=== PATIENT | female | born 1940 | race Asian ===

== ENCOUNTER 2016-12-27 23:21 | Emergency (ER) | payer MEDICARE, OTHER ==
[~2016-12-27] VITALS: Ht 144.8 cm; Wt 45.4 kg
[2016-12-28 00:29] LABS: BASO % 1 % (0-3); EOS # 0.1 x10^3/uL (0.0-0.7); EOS % 3 % (0-3); HEMATOCRIT 43.6 % (36.0-47.0); HEMOGLOBIN 14.7 g/dL (12.0-15.5); LYMPH # 1.9 x10^3/uL (1.0-4.8); LYMPH % 43 % (24-48); MEAN CORPUSCULAR HEMOGLOBIN 31 pg (25-35); MEAN CORPUSCULAR HGB CONC 34 g/dL (31-37); MEAN CORPUSCULAR VOLUME 91 fL (79-100); MONO # 0.4 x10^3/uL (0.0-1.1); MONO % 8 % (0-9); NEUT % 46 % (31-73); PLATELET COUNT 200 x10^3/uL (140-400); RED BLOOD COUNT 4.82 x10^6/uL (3.50-5.40); RED CELL DISTRIBUTION WIDTH 13.5 % (11.5-14.5); WHITE BLOOD COUNT 4.3 x10^3/uL (4.0-11.0)
[2016-12-28] MEDS ORDERED: LABETALOL 20 MG/4 ML DISP.SYRIN. IVP ONE (00:30)
--- NOTE | 2016-12-28 00:33 | RAD ---
EXAM: CT HEAD WITHOUT CONTRAST. HISTORY: Hypertension. TECHNIQUE: Computed tomography of the head was performed without intravenous contrast. COMPARISON: None. FINDINGS: There is no intracranial hemorrhage. Hypoattenuation within the periventricular white matter indicates mild chronic microangiopathic change. Prominence of the lateral ventricles and hemispheric sulci indicates mild atrophy. The visualized paranasal sinuses appear clear. The orbits are unremarkable. There is a small amount of fluid in the left middle ear cavity. The calvarium reveals no suspicious lesions. There are atherosclerotic calcifications of the internal carotid arteries. IMPRESSION: 1. No acute intracranial findings. 2. Mild atrophy and chronic microangiopathic white matter change. 3. Correlate for left otitis media. *One or more of the following individualized dose reduction techniques were utilized for this examination: 1. Automated exposure control. 2. Adjustment of the mA and/or kV according to patient size. 3. Use of iterative reconstruction technique. Electronically signed by: Eduardo Justice MD (12/28/2016 12:29 AM)
[2016-12-28 00:40] LABS: ALBUMIN 3.8 g/dL (3.4-5.0); ALBUMIN/GLOBULIN RATIO 1.1 (1.0-1.7); CREATININE 0.8 mg/dL (0.6-1.0); GFR 69.4; TOTAL BILIRUBIN 0.3 mg/dL (0.2-1.0); TOTAL PROTEIN 7.3 g/dL (6.4-8.2)
--- NOTE | 2016-12-28 00:57 | PHYS DOC ---
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 Tonight while laying in bed patient noticed an increased ringing in her right ear. Although she had no chest pain, no vision changes, no shortness of breath, no other neurologic complaints she took her blood pressure noted that it was mildly elevated at 170s over 90s. She took at some subsequently 3 more times and it remained elevated. She was concerned and came to the emergency department in the emergency department her blood pressure initially was very elevated but she again has no symptoms not even tinnitus at this time. She denies any headache, denies any change in medication regimen, denies any trauma, or hematuria. Review of Systems Review of Systems Constitutional: Denies fever or chills [] Eyes: Denies change in visual acuity, redness, or eye pain [] complains only tinnitus in the right ear HENT: Denies nasal congestion or sore throat [] Respiratory: Denies cough or shortness of breath [] Cardiovascular: No additional information not addressed in HPI [] GI: Denies abdominal pain, nausea, vomiting, bloody stools or diarrhea [] : Denies dysuria or hematuria [] Musculoskeletal: Denies back pain or joint pain [] Integument: Denies rash or skin lesions [] Neurologic: Denies headache, focal weakness or sensory changes [] Endocrine: Denies polyuria or polydipsia [] Current Medications Current Medications Current Medications Medications (Trade) Dose Ordered Sig/[facility] Start Time Stop Time Status Last Admin Dose Admin Labetalol HCl (Normodyne) 20 mg 1X ONCE 12/28/16 00:30 12/28/16 00:31 DC 12/28/16 00:30 20 MG Allergies Allergies Allergies Coded Allergies Type Severity Reaction Last Updated Verified No Known Drug Allergies 12/27/16 No Physical Exam Physical Exam Constitutional: Well developed, well nourished, no acute distress, non-toxic appearance. [] HENT: Normocephalic, atraumatic, bilateral external ears normal, oropharynx moist, no oral exudates, nose normal. [] Eyes: PERRLA, EOMI, conjunctiva normal, no discharge. [] Neck: Normal range of motion, no tenderness, supple, no stridor. [] Cardiovascular:Heart rate regular rhythm, no murmur [] Lungs & Thorax: Bilateral breath sounds clear to auscultation [] Abdomen: Bowel sounds normal, soft, no tenderness, no masses, no pulsatile masses. [] Skin: Warm, dry, no erythema, no rash. [] Back: No tenderness, no CVA tenderness. [] Extremities: No tenderness, no cyanosis, no clubbing, ROM intact, no edema. [] Neurologic: Alert and oriented X 3, normal motor function, normal sensory function, no focal deficits noted. [] Cranial nerves II through XII are intact. Patient's visual acuities with intact to visual confrontation. Patient has no dysmetria or past-pointing. Patient is normal sensation to light touch and pain up her perception over all extremities. Psychologic: Affect normal, judgement normal, mood normal. [] Current Patient Data Vital Signs Vital Signs Date Time Temp Pulse Resp B/P (MAP) Pulse Ox O2 Delivery O2 Flow Rate FiO2 12/28/16 00:30 64 167/96 Lab Results Laboratory Tests Test 12/28/16 00:05 White Blood Count 4.3 x10^3/uL (4.0-11.0) Red Blood Count 4.82 x10^6/uL (3.50-5.40) Hemoglobin 14.7 g/dL (12.0-15.5) Hematocrit 43.6 % (36.0-47.0) Mean Corpuscular Volume 91 fL (79-100) Mean Corpuscular Hemoglobin 31 pg (25-35) Mean Corpuscular Hemoglobin Concent 34 g/dL (31-37) Red Cell Distribution Width 13.5 % (11.5-14.5) Platelet Count 200 x10^3/uL (140-400) Neutrophils (%) (Auto) 46 % (31-73) Lymphocytes (%) (Auto) 43 % (24-48) Monocytes (%) (Auto) 8 % (0-9) Eosinophils (%) (Auto) 3 % (0-3) Basophils (%) (Auto) 1 % (0-3) Neutrophils # (Auto) 2.0 x10^3uL (1.8-7.7) Lymphocytes # (Auto) 1.9 x10^3/uL (1.0-4.8) Monocytes # (Auto) 0.4 x10^3/uL (0.0-1.1) Eosinophils # (Auto) 0.1 x10^3/uL (0.0-0.7) Basophils # (Auto) 0.0 x10^3/uL (0.0-0.2) Sodium Level 142 mmol/L (136-145) Potassium Level 4.0 mmol/L (3.5-5.1) Chloride Level 107 mmol/L (98-107) Carbon Dioxide Level 31 mmol/L (21-32) Anion Gap 4 (6-14) L Blood Urea Nitrogen 15 mg/dL (7-20) Creatinine 0.8 mg/dL (0.6-1.0) Estimated GFR (Cockcroft-Gault) 69.4 BUN/Creatinine Ratio 19 (6-20) Glucose Level 107 mg/dL (70-99) H Calcium Level 9.0 mg/dL (8.5-10.1) Total Bilirubin 0.3 mg/dL (0.2-1.0) Aspartate Amino Transferase (AST) 24 U/L (15-37) Alanine Aminotransferase (ALT) 33 U/L (14-59) Alkaline Phosphatase 93 U/L (46-116) Troponin I Quantitative < 0.017 ng/mL (0-0.055) Total Protein 7.3 g/dL (6.4-8.2) Albumin 3.8 g/dL (3.4-5.0) Albumin/Globulin Ratio 1.1 (1.0-1.7) EKG EKG [] EKG timed till at 2 AM on 12/28/2016 demonstrates sinus rhythm at 65 bpm MI interval of 162 which is normal QRS interval normal at 80 QTC normal at 419. There is a nonspecific T-wave flattening in V6 lateral leads otherwise normal looking EKG. Read by Dr. Henderson. Radiology/Procedures Radiology/Procedures [] IMAGING REPORT Signed PATIENT: REANNA GRACIA ACCOUNT: [id number] : 1940 LOCATION: ER AGE: 76 SEX: F EXAM STATUS: REG ER ORD. PHYSICIAN: RANJIT HENDERSON MD REASON: htn PROCEDURE: CT HEAD WO CONTRAST EXAM: CT HEAD WITHOUT CONTRAST. HISTORY: Hypertension. TECHNIQUE: Computed tomography of the head was performed without intravenous contrast. COMPARISON: None. FINDINGS: There is no intracranial hemorrhage. Hypoattenuation within the periventricular white matter indicates mild chronic microangiopathic change. Prominence of the lateral ventricles and hemispheric sulci indicates mild atrophy. The visualized paranasal sinuses appear clear. The orbits are unremarkable. There is a small amount of fluid in the left middle ear cavity. The calvarium reveals no suspicious lesions. There are atherosclerotic calcifications of the internal carotid arteries. IMPRESSION: 1. No acute intracranial findings. 2. Mild atrophy and chronic microangiopathic white matter change. 3. Correlate for left otitis media. *One or more of the following individualized dose reduction techniques were utilized for this examination: 1. Automated exposure control. 2. Adjustment of the mA and/or kV according to patient size. 3. Use of iterative reconstruction technique. Electronically signed by: Eduardo Justice MD (12/28/2016 12:29 AM) DICTATED AND SIGNED BY: EDUARDO JUSTICE MD DATE: 12/28/16 0027 CC: RANJIT HENDERSON MD; MACARIO MILTON MD ~ Course & Med Decision Making Course & Med Decision Making Pertinent Labs and Imaging studies reviewed. (See chart for details) since laboratory work, CT scan of head, EKG were all evaluated for end organ damage presence.. There is no evidence of cardiac ischemia, on EKG or troponin. No evidence of renal insufficiency or hematuria proteinuria on urinalysis no evidence of ischemia on CAT scan of her head. Impression hypertensive urgency, tinnitus unclear etiology. Disposition: Hypertensive urgency follow-up 24-48 hours her primary care doctor to change or alter present hypertensive regimen. Patient encouraged to limit salt intake encouraged to exercise even precautions. [] Dragon Disclaimer Dragon Disclaimer This chart was dictated in whole or in part using Voice Recognition software in a busy, high-work load, and often noisy Emergency Department environment. It may contain unintended and wholly unrecognized errors or omissions. Departure Departure: Impression: Primary Impression: Hypertension Additional Impression: Tinnitus of right ear Disposition: HOME, SELF-CARE Condition: IMPROVED Referrals: MACARIO MILTON MD (PCP) Patient Instructions: Hypertension, Tinnitus Additional Instructions: Patient asked to follow-up with her primary care doctor next 24-48 hours to change present hypertensive regiment. Asked to return for any new or increasing symptoms like chest pain shortness of breath or focal neurologic deficit. Problem Qualifiers RANJIT HENDERSON MD December 28, 2016 00:57
[2016-12-28 00:58] LABS: BACTERIA,URINE 0 /HPF (0-FEW); BILIRUBIN,URINE NEG (NEG); CLARITY,URINE CLEAR; COLOR,URINE YELLOW; GLUCOSE,URINE NEG (NEG); NITRITE,URINE NEG (NEG); RBC,URINE 0 /HPF (0-2); SQUAMOUS EPITHELIAL CELL,UR OCC /LPF; UROBILINOGEN,URINE 0.2 mg/dL (0.2 mg/dL); WBC,URINE RARE /HPF (0-4)
[2016-12-28 01:05] VITALS: BP 167/91
--- NOTE | 2016-12-28 03:49 | EKG ---
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
== END 2016-12-28 01:08 | disposition home or self-care (01) ==
LOC: ER 23:21
DX: I10 Essential (primary) hypertension (principal); H93.11 Tinnitus, right ear; E78.00 Pure hypercholesterolemia, unspecified
CPT/HCPCS: 36415; 70450; 80053; 81001; 84484; 85027; 93005; 96374; 99285; J3490

== ENCOUNTER 2016-12-30 00:10 | Emergency (ER) | payer MEDICARE, OTHER ==
[~2016-12-30] VITALS: Ht 144.8 cm; Wt 45.4 kg
[2016-12-30 00:10] VITALS: BP 183/78
--- NOTE | 2016-12-30 00:58 | ED.ADGEN ---
Past History Past Medical History: High Cholesterol, Hypertension Past Surgical History: Hysterectomy Smoking: Non-smoker Alcohol Use: None Drug Use: None Adult General HPI HPI Patient is a 76-year-old woman, with history of hypertension, who presents to the emergency department with a complaint of hypertension. Patient states that she's been checking her blood pressure about once an hour for the past several hours, and noted that it was up to 180s over 90s. Patient was seen in the emergency department on December 27, at that time she been experiencing tinnitus and was concerned about her blood pressure at that time as well. She states that at home on that occasion her blood pressure had been 204/99. Patient received a full evaluation including ECG, CT of the head, and laboratory studies. No concerning findings were identified at that time, and patient was discharged home to follow up with her primary care provider. Patient states that she was going to follow-up with her primary care provider today, however her had appointments in [place] which conflicted with any potential follow-up time with her physician. She states that she plans on following up with her doctor this morning. Patient states that earlier she was experiencing a headache on the right side of her head but it is currently resolved. She denies any weakness, numbness, tingling, chest pain, injuries, fever, chills, GI or complaints, shortness breath, vision changes, hearing changes, nausea, vomiting, syncopal or presyncopal type symptoms. Patient states that she was discussing her blood pressure with a friend of hers who is a dietitian who told her to "check my blood pressure from time to time", and after she checked it once earlier this evening, she checked it about once every hour and was concerned enough to come to the ED for evaluation. As stated, she is denying all complaints at this time. Review of Systems Review of Systems Constitutional: Denies fever or chills [] Eyes: Denies change in visual acuity, redness, or eye pain [] HENT: Denies nasal congestion or sore throat [] Respiratory: Denies cough or shortness of breath [] Cardiovascular: No additional information not addressed in HPI [] GI: Denies abdominal pain, nausea, vomiting, bloody stools or diarrhea [] : Denies dysuria or hematuria [] Musculoskeletal: Denies back pain or joint pain [] Integument: Denies rash or skin lesions [] Neurologic: Denies focal weakness or sensory changes. Right-sided headache, now resolved.] Endocrine: Denies polyuria or polydipsia [] Allergies Allergies Allergies Coded Allergies Type Severity Reaction Last Updated Verified No Known Drug Allergies 12/27/16 No Physical Exam Physical Exam Constitutional: Well developed, well nourished, no acute distress, non-toxic appearance. [] HENT: Normocephalic, atraumatic, bilateral external ears normal, oropharynx moist, no oral exudates, nose normal. [] Eyes: PERRLA, EOMI, conjunctiva normal, no discharge. [] Neck: Normal range of motion, no tenderness, supple, no stridor. [] Cardiovascular:Heart rate regular rhythm, no murmur , S1, S2, no rubs or gallops. [] Lungs & Thorax: Bilateral breath sounds clear to auscultation, no wheezing, rhonchi, rales. No chest wall tenderness or crepitus. [] Abdomen: Bowel sounds normal, soft, no tenderness, no rebound, no rigidity, no guarding, no masses, no pulsatile masses. [] Skin: Warm, dry, no erythema, no rash. [] Back: No tenderness, no CVA tenderness. [] Extremities: No tenderness, no cyanosis, no clubbing, ROM intact, no edema. Negative Homans sign. [] Neurologic: Alert and oriented X 3, normal motor function, normal sensory function, no focal deficits noted. [] Psychologic: Affect normal, judgement normal, mood normal. [] EKG EKG ECG: Rhythm strip: Heart rate [75 bpm, no ectopy. As interpreted by me. Radiology/Procedures Radiology/Procedures Not indicated. [] Course & Med Decision Making Course & Med Decision Making Pertinent Labs and Imaging studies reviewed. (See chart for details) Patient asymptomatic in the emergency department at this time, normal neurologic examination, as stated blood pressure is 181/78, heart rate is in the 70s to 80s. Discussion at bedside with patient regarding the limited benefit of repeated home blood pressure checks, as I'm concerned more anxious the patient because her blood pressure, the higher it may go. We also discussed levels of hypertension that would cause medical concern, and concerning symptoms that would prompt the need for reevaluation. Patient confirms that she has been compliant with her medications. She re-states that she is having no symptoms at this time. Patient states that she is ready to be discharged home, as she is feeling fine. She states she'll be able to follow-up with her primary care provider tomorrow, and will return to the emergency department if any new or concerning symptoms as discussed at bedside develop. Patient discharged home in stable condition with plan as above. Final Impression Final Impression [] Problems: Dragon Disclaimer Dragon Disclaimer This electronic medical record was generated, in whole or in part, using a voice recognition dictation system. Departure: Impression: Primary Impression: Hypertension Additional Impression: Encounter for medical screening examination Disposition: HOME, SELF-CARE Condition: STABLE MAGNOLIA COOPER DO December 30, 2016 00:58
== END 2016-12-30 00:40 | disposition home or self-care (01) ==
LOC: ER 00:10
DX: Z00.00 Encounter for general adult medical examination without abnormal findings (principal); I10 Essential (primary) hypertension; E78.00 Pure hypercholesterolemia, unspecified
CPT/HCPCS: 99281

== ENCOUNTER 2017-08-15 19:20 | Emergency (ER) | payer MEDICARE, OTHER ==
[~2017-08-15] VITALS: Ht 144.8 cm; Wt 47.1 kg
--- NOTE | 2017-08-15 19:33 | ED.ADGEN ---
Past History Past Medical History: Diabetes, High Cholesterol, Hypertension Past Surgical History: Hysterectomy Smoking: Non-smoker Alcohol Use: None Drug Use: None Adult General Chief Complaint Chief Complaint " I was feeling a little off... and took my blood sugar and BP.. my sugar was okay.. but my BP 200's.. I just seen Dr. Porter this past week and everything was okay..." HPI HPI Patient is a 77 year old FEMALE who presents with above hx and complaints. Pt. BP at home were over 200's with home machine. Pt. became concern and presents to ED. Pt. reports compliance with home meds. Patient denies any other changes. Patient has no other symptoms. Patient is a known diabetic. Sugars have been running 116 max at home. Patient denies any history of cardiac disorders. Patient denies any travel. Patient denies any ill contacts. Patient normally follows with . Review of Systems Review of Systems Constitutional: Denies fever or chills [] Eyes: Denies change in visual acuity, redness, or eye pain [] HENT: Denies nasal congestion or sore throat [] Respiratory: Denies cough or shortness of breath [] Cardiovascular: No additional information not addressed in HPI [] GI: Denies abdominal pain, nausea, vomiting, bloody stools or diarrhea [] : Denies dysuria or hematuria [] Musculoskeletal: Denies back pain or joint pain [] Integument: Denies rash or skin lesions [] Neurologic: Denies headache, focal weakness or sensory changes [] Endocrine: Denies polyuria or polydipsia [] All other systems were reviewed and found to be within normal limits, except as documented in this note. Family History Family History Diabetes Current Medications Current Medications Current Medications Medications (Trade) Dose Ordered Sig/[facility] Start Time Stop Time Status Last Admin Dose Admin Clonidine HCl (Catapres Tts-2) 0.2 patch 1X ONCE 08/15/17 19:45 08/15/17 19:46 DC 08/15/17 21:26 0.2 PATCH Clonidine HCl (Catapres) 0.2 mg 1X ONCE 08/15/17 19:45 08/15/17 19:46 DC 08/15/17 19:53 0.1 MG See nursing for home meds Allergies Allergies Allergies Coded Allergies Type Severity Reaction Last Updated Verified No Known Drug Allergies 12/27/16 No Physical Exam Physical Exam Constitutional: Well developed, well nourished, no acute distress, non-toxic appearance. [] HENT: Normocephalic, atraumatic, bilateral external ears normal, oropharynx moist, no oral exudates, nose normal. [] Eyes: PERRLA, EOMI, conjunctiva normal, no discharge. [] Neck: Normal range of motion, no tenderness, supple, no stridor. [] Cardiovascular:Heart rate regular rhythm, no murmur [] Lungs & Thorax: Bilateral breath sounds clear to auscultation [] Abdomen: Bowel sounds normal, soft, no tenderness, no masses, no pulsatile masses. [] Old surgery scar Skin: Warm, dry, no erythema, no rash. [] Back: No tenderness, no CVA tenderness. [] Extremities: No tenderness, no cyanosis, no clubbing, ROM intact, no edema. [] Neurologic: Alert and oriented X 3, normal motor function, normal sensory function, no focal deficits noted. [] Psychologic: Affect normal, judgement normal, mood normal. [] Current Patient Data Vital Signs Vital Signs Date Time Temp Pulse Resp B/P (MAP) Pulse Ox O2 Delivery O2 Flow Rate FiO2 08/15/17 20:30 64 16 189/86 (120) 99 Room Air 08/15/17 19:31 98.0 Lab Results Laboratory Tests Test 08/15/17 20:00 White Blood Count 4.4 x10^3/uL (4.0-11.0) Red Blood Count 4.39 x10^6/uL (3.50-5.40) Hemoglobin 13.5 g/dL (12.0-15.5) Hematocrit 39.8 % (36.0-47.0) Mean Corpuscular Volume 91 fL (79-100) Mean Corpuscular Hemoglobin 31 pg (25-35) Mean Corpuscular Hemoglobin Concent 34 g/dL (31-37) Red Cell Distribution Width 13.5 % (11.5-14.5) Platelet Count 207 x10^3/uL (140-400) Neutrophils (%) (Auto) 46 % (31-73) Lymphocytes (%) (Auto) 39 % (24-48) Monocytes (%) (Auto) 9 % (0-9) Eosinophils (%) (Auto) 5 % (0-3) H Basophils (%) (Auto) 1 % (0-3) Neutrophils # (Auto) 2.0 x10^3uL (1.8-7.7) Lymphocytes # (Auto) 1.8 x10^3/uL (1.0-4.8) Monocytes # (Auto) 0.4 x10^3/uL (0.0-1.1) Eosinophils # (Auto) 0.2 x10^3/uL (0.0-0.7) Basophils # (Auto) 0.0 x10^3/uL (0.0-0.2) Sodium Level 143 mmol/L (136-145) Potassium Level 4.3 mmol/L (3.5-5.1) Chloride Level 107 mmol/L (98-107) Carbon Dioxide Level 29 mmol/L (21-32) Anion Gap 7 (6-14) Blood Urea Nitrogen 18 mg/dL (7-20) Creatinine 1.1 mg/dL (0.6-1.0) H Estimated GFR (Cockcroft-Gault) 47.9 Glucose Level 127 mg/dL (70-99) H Calcium Level 8.9 mg/dL (8.5-10.1) Magnesium Level 2.3 mg/dL (1.8-2.4) Total Bilirubin 0.2 mg/dL (0.2-1.0) Direct Bilirubin 0.1 mg/dL (0.0-0.2) Aspartate Amino Transferase (AST) 19 U/L (15-37) Alanine Aminotransferase (ALT) 28 U/L (14-59) Alkaline Phosphatase 72 U/L (46-116) Troponin I Quantitative < 0.017 ng/mL (0-0.055) Total Protein 6.9 g/dL (6.4-8.2) Albumin 3.6 g/dL (3.4-5.0) EKG EKG My interpretation of EKG shows a sinus rhythm at 68 bpm. No findings acute STEMI of contralateral changes. There are some J-point elevations in V1 ,2 and 3 [] Radiology/Procedures Radiology/Procedures [] Course & Med Decision Making Course & Med Decision Making Pertinent Labs and Imaging studies reviewed. (See chart for details). Patient to take her blood pressure machine to her next office visit and compare results with office results. Patient continued take her meds as directed. We will leave a clonidine patch on for the next 7 days. Patient call for follow up [] Final Impression Final Impression 1. Hypertension[] 2. History of diabetes Problems: Dragon Disclaimer Dragon Disclaimer This electronic medical record was generated, in whole or in part, using a voice recognition dictation system. DARIANA LARSON MD Aug 15, 2017 19:33
[2017-08-15] MEDS ORDERED: cloNIDine HCL 0.1 MG TABLET PO ONE (19:45)
[2017-08-15] MEDS: cloNIDine TTS-2 1 PATCH PATCH TD ONE ×2 (19:45→21:26)
--- NOTE | 2017-08-15 20:21 | EKG ---
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
[2017-08-15 20:30] VITALS: BP 189/86
[2017-08-15 20:31] LABS: BASO % 1 % (0-3); EOS # 0.2 x10^3/uL (0.0-0.7); EOS % 5 % (0-3); HEMATOCRIT 39.8 % (36.0-47.0); HEMOGLOBIN 13.5 g/dL (12.0-15.5); LYMPH # 1.8 x10^3/uL (1.0-4.8); LYMPH % 39 % (24-48); MEAN CORPUSCULAR HEMOGLOBIN 31 pg (25-35); MEAN CORPUSCULAR HGB CONC 34 g/dL (31-37); MEAN CORPUSCULAR VOLUME 91 fL (79-100); MONO # 0.4 x10^3/uL (0.0-1.1); MONO % 9 % (0-9); NEUT % 46 % (31-73); PLATELET COUNT 207 x10^3/uL (140-400); RED BLOOD COUNT 4.39 x10^6/uL (3.50-5.40); RED CELL DISTRIBUTION WIDTH 13.5 % (11.5-14.5); WHITE BLOOD COUNT 4.4 x10^3/uL (4.0-11.0)
[2017-08-15 20:39] LABS: ALBUMIN 3.6 g/dL (3.4-5.0); CALCIUM 8.9 mg/dL (8.5-10.1); CREATININE 1.1 mg/dL (0.6-1.0); DIRECT BILIRUBIN 0.1 mg/dL (0.0-0.2); GFR 47.9; MAGNESIUM 2.3 mg/dL (1.8-2.4); POTASSIUM 4.3 mmol/L (3.5-5.1); TOTAL BILIRUBIN 0.2 mg/dL (0.2-1.0); TOTAL PROTEIN 6.9 g/dL (6.4-8.2)
== END 2017-08-15 21:50 | disposition home or self-care (01) ==
LOC: ER 19:20
DX: I10 Essential (primary) hypertension (principal); E11.9 Type 2 diabetes mellitus without complications; E78.00 Pure hypercholesterolemia, unspecified
CPT/HCPCS: 36415; 80048; 80076; 83735; 84484; 85025; 93005; 99285-25

== ENCOUNTER 2017-10-24 22:35 | Emergency (ER) | payer MEDICARE, OTHER ==
[~2017-10-24] VITALS: Ht 142.2 cm; Wt 47.8 kg
[2017-10-24 23:30] LABS: BASO % 1 % (0-3); EOS # 0.2 x10^3/uL (0.0-0.7); EOS % 3 % (0-3); HEMATOCRIT 40.8 % (36.0-47.0); HEMOGLOBIN 13.8 g/dL (12.0-15.5); LYMPH % 35 % (24-48); MEAN CORPUSCULAR HEMOGLOBIN 31 pg (25-35); MEAN CORPUSCULAR HGB CONC 34 g/dL (31-37); MEAN CORPUSCULAR VOLUME 92 fL (79-100); MONO # 0.5 x10^3/uL (0.0-1.1); MONO % 8 % (0-9); NEUT # 3.2 x10^3uL (1.8-7.7); NEUT % 54 % (31-73); PLATELET COUNT 199 x10^3/uL (140-400); RED BLOOD COUNT 4.46 x10^6/uL (3.50-5.40); RED CELL DISTRIBUTION WIDTH 13.4 % (11.5-14.5); WHITE BLOOD COUNT 5.9 x10^3/uL (4.0-11.0)
[2017-10-24 23:42] LABS: ALBUMIN 3.6 g/dL (3.4-5.0); ALBUMIN/GLOBULIN RATIO 1.1 (1.0-1.7); CALCIUM 8.4 mg/dL (8.5-10.1); CREATININE 0.8 mg/dL (0.6-1.0); GFR 69.2; POTASSIUM 3.8 mmol/L (3.5-5.1); TOTAL BILIRUBIN 0.3 mg/dL (0.2-1.0); TOTAL PROTEIN 6.8 g/dL (6.4-8.2)
--- NOTE | 2017-10-24 23:56 | EKG ---
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
[2017-10-25 00:15] LABS: BILIRUBIN,URINE NEG (NEG); CLARITY,URINE CLEAR; COLOR,URINE YELLOW; GLUCOSE,URINE NEG (NEG); NITRITE,URINE NEG (NEG); UROBILINOGEN,URINE 0.2 mg/dL (0.2 mg/dL)
[2017-10-25 00:16] LABS: BACTERIA,URINE 0 /HPF (0-FEW); RBC,URINE RARE /HPF (0-2); WBC,URINE RARE /HPF (0-4)
[2017-10-25 00:21] VITALS: BP 182/89
--- NOTE | 2017-10-25 00:27 | PHYS DOC ---
Past History Past Medical History: Diabetes, High Cholesterol, Hypertension Past Surgical History: Hysterectomy, Other Smoking: Non-smoker Alcohol Use: None Drug Use: None Adult General Chief Complaint Chief Complaint: HYPERTENSION HPI HPI Patient is a 77 year old female who presents with hypertension. The patient states she "felt funny" so she checked her blood pressure at home & it was 233 systolic. She denies headache, vision changes, chest pain, shortness of breath , nausea, vomiting, diarrhea, extremity numbness/weakness, extremity swelling. She has history of hypertension for which she takes "80 mg of a medication that starts with M." Does not have medications with her here today. Also has history of HLD & pre diabetes. Denies CAD or CVA. PCP is Dr. Porter. Review of Systems Review of Systems Constitutional: Denies fever or chills Eyes: Denies change in visual acuity HENT: Denies nasal congestion or sore throat Respiratory: Denies cough or shortness of breath Cardiovascular: Denies chest pain or edema GI: Denies abdominal pain, nausea, vomiting, bloody stools or diarrhea : Denies dysuria or hematuria Musculoskeletal: Denies back pain or joint pain Integument: Denies rash or skin lesions Neurologic: Denies headache, focal weakness or sensory changes All other systems were reviewed and found to be within normal limits, except as documented in this note. Allergies Allergies Allergies Coded Allergies Type Severity Reaction Last Updated Verified No Known Drug Allergies 12/27/16 No Physical Exam Physical Exam Constitutional: Well developed, well nourished, no acute distress, non-toxic appearance. HENT: Normocephalic, atraumatic, bilateral external ears normal, oropharynx moist, nose normal. Eyes: PERRLA, EOMI, conjunctiva normal, no discharge. Neck: supple, no stridor. Cardiovascular: RRR, no murmurs, no edema. Lungs & Thorax: LCTAB, no wheezing, no respiratory distress. Abdomen: soft, nontender, nondistended. Skin: Warm, dry, no erythema, no rash. Back: No tenderness. Extremities: No tenderness, no edema. no calf tenderness or swelling. Neurologic: Alert and oriented X 3, cranial nerves 2-12 grossly intact, symmetric strength/sensation to upper & lower extremities, no focal deficits noted. Psychologic: Affect normal, judgement normal, mood normal. Current Patient Data Lab Results Laboratory Tests Test 10/24/17 23:07 10/24/17 23:51 White Blood Count 5.9 x10^3/uL (4.0-11.0) Red Blood Count 4.46 x10^6/uL (3.50-5.40) Hemoglobin 13.8 g/dL (12.0-15.5) Hematocrit 40.8 % (36.0-47.0) Mean Corpuscular Volume 92 fL (79-100) Mean Corpuscular Hemoglobin 31 pg (25-35) Mean Corpuscular Hemoglobin Concent 34 g/dL (31-37) Red Cell Distribution Width 13.4 % (11.5-14.5) Platelet Count 199 x10^3/uL (140-400) Neutrophils (%) (Auto) 54 % (31-73) Lymphocytes (%) (Auto) 35 % (24-48) Monocytes (%) (Auto) 8 % (0-9) Eosinophils (%) (Auto) 3 % (0-3) Basophils (%) (Auto) 1 % (0-3) Neutrophils # (Auto) 3.2 x10^3uL (1.8-7.7) Lymphocytes # (Auto) 2.0 x10^3/uL (1.0-4.8) Monocytes # (Auto) 0.5 x10^3/uL (0.0-1.1) Eosinophils # (Auto) 0.2 x10^3/uL (0.0-0.7) Basophils # (Auto) 0.0 x10^3/uL (0.0-0.2) Sodium Level 140 mmol/L (136-145) Potassium Level 3.8 mmol/L (3.5-5.1) Chloride Level 104 mmol/L (98-107) Carbon Dioxide Level 27 mmol/L (21-32) Anion Gap 9 (6-14) Blood Urea Nitrogen 21 mg/dL (7-20) H Creatinine 0.8 mg/dL (0.6-1.0) Estimated GFR (Cockcroft-Gault) 69.2 BUN/Creatinine Ratio 26 (6-20) H Glucose Level 112 mg/dL (70-99) H Calcium Level 8.4 mg/dL (8.5-10.1) L Total Bilirubin 0.3 mg/dL (0.2-1.0) Aspartate Amino Transferase (AST) 24 U/L (15-37) Alanine Aminotransferase (ALT) 34 U/L (14-59) Alkaline Phosphatase 89 U/L (46-116) Troponin I Quantitative < 0.017 ng/mL (0-0.055) Total Protein 6.8 g/dL (6.4-8.2) Albumin 3.6 g/dL (3.4-5.0) Albumin/Globulin Ratio 1.1 (1.0-1.7) Urine Collection Type Unknown Urine Color Yellow Urine Clarity Clear Urine pH 5.5 Urine Specific [place] <=1.005 Urine Protein Neg (NEG-TRACE) Urine Glucose (UA) Neg mg/dL (NEG) Urine Ketones (Stick) Neg mg/dL (NEG) Urine Blood Trace (NEG) Urine Nitrite Neg (NEG) Urine Bilirubin Neg (NEG) Urine Urobilinogen Dipstick 0.2 mg/dL (0.2 mg/dL) Urine Leukocyte Esterase Neg (NEG) Urine RBC Rare /HPF (0-2) Urine WBC Rare /HPF (0-4) Urine Squamous Epithelial Cells None /LPF Urine Bacteria 0 /HPF (0-FEW) EKG EKG interpreted by sd: 2247: normal sinus rhythm rate 67, no acute ST/T wave changes, normal intervals, no ectopy.[] Radiology/Procedures Radiology/Procedures [] Course & Med Decision Making Course & Med Decision Making Pertinent Labs and Imaging studies reviewed. (See chart for details) The patient presents with essentially asymptomatic hypertension, but given her concerns about "feeling funny," obtained labs & EKG to evaluate for acute cardiac event. Blood pressure 180s/80s-90s here, no specific symptoms to indicate end organ failure. No significant abnormality identified on labs or EKG, patient felt well throughout her stay. Recommend rest, avoid excessively checking blood pressure at home which can cause anxiety, take blood pressure medication as prescribed, follow up with PCP in 2-3 days for blood pressure recheck & medication review. Come back for severe headache, severe chest pain or shortness of breath, altered mental status or focal neurologic deficit, any otherwise worsening condition. Discharged home in stable condition. [] Dragon Disclaimer Dragon Disclaimer This electronic medical record was generated, in whole or in part, using a voice recognition dictation system. Departure Departure: Impression: Primary Impression: Hypertension Disposition: HOME, SELF-CARE Condition: STABLE Referrals: MACARIO MILTON MD (PCP) Patient Instructions: Hypertension, [id number] Additional Instructions: You were seen in the emergency department today for high blood pressure. Your tests did not show any serious medical condition. Sometimes people feel more anxious when they check their blood pressure frequently at home. It may be helpful to try to not take blood pressure at home if the anticipation of having elevated blood pressure causes stress or anxiety. Please continue to take blood pressure medication as prescribed by your physician and make a follow-up appointment in about one week for blood pressure recheck and medication evaluation. Return to the emergency department for severe headache, severe chest pain or shortness of breath, numbness or weakness in arms or legs, any otherwise worsening condition. ALEXEY TURNER MD Oct 25, 2017 00:27
== END 2017-10-25 00:35 | disposition home or self-care (01) ==
LOC: ER 22:35
DX: I10 Essential (primary) hypertension (principal); E11.9 Type 2 diabetes mellitus without complications; E78.00 Pure hypercholesterolemia, unspecified
CPT/HCPCS: 36415; 80053; 81001; 84484; 85025; 93005; 99285-25